=== PATIENT | male | born 1950 | race Caucasian/White ===

== ENCOUNTER 2020-12-24 11:41 | Inpatient (IN) | payer MEDICARE, OTHER ==
[~2020-12-24] VITALS: Ht 172.7 cm; Wt 59.2 kg
[2020-12-24 12:04] LABS: BASOPHILS % (AUTO) 0.2 % (0.0-5.0); EOSINOPHILS % (AUTO) 0.3 % (0.0-8.0); HEMATOCRIT 31.3 % (42-54); LYMPHOCYTES % (AUTO) 14.2 % (21.0-51.0); MEAN CORPUSCULAR HEMOGLOBIN 29.7 pg (27.0-33.0); MEAN CORPUSCULAR HGB CONC 34.2 g/dL (32.0-36.0); MEAN CORPUSCULAR VOLUME 86.9 fL (79-99); MONOCYTES % (AUTO) 8.5 % (3.0-13.0); NEUTROPHILS % (AUTO) 76.4 % (40.0-77.0); PLATELET COUNT (AUTO) 209 K/uL (130-400); RED CELL DISTRIBUTION WIDTH 13.1 % (11.0-15.5)
[2020-12-24] MEDS: PANTOPRAZOLE 40 MG/VIAL IVP SCH (12:13)
[2020-12-24 12:14] LABS: CREATININE 0.9 mg/dL (0.5-1.5); POTASSIUM 3.1 mmol/L (3.5-5.1)
[2020-12-24 12:15] LABS: INR 1.12 (0.85-1.15); PROTHROMBIN TIME 12.1 SEC (9.6-11.6)
[2020-12-24 12:16] LABS: PARTIAL THROMBOPLASTIN TIME 22.3 SEC (26.3-35.5)
[2020-12-24 12:19] LABS: ALBUMIN 3.2 g/dL (3.5-5.0); BILIRUBIN,TOTAL 0.9 mg/dL (0.2-1.0); TOTAL PROTEIN, SERUM 5.9 g/dL (6.0-8.3)
[2020-12-24] MEDS ORDERED: 0.9%NACL 1000ML 1,000 ML IV ONE (12:30)
[2020-12-24] MEDS ORDERED: IOHEXOL-350 75 ML VIAL IV ONE (13:41)
[2020-12-24 14:23] LABS: APPEARANCE,URINE Clear (CLEAR); BILIRUBIN,URINE Negative (NEGATIVE); COLOR,URINE Yellow (YELLOW); GLUCOSE, URINE (UA) Negative (NEGATIVE); KETONES,URINE >=160 mg/dL (NEGATIVE); LEUKOCYTE ESTERASE ,URINE Negative (NEGATIVE); NITRATE,URINE Negative (NEGATIVE); OCCULT BLOOD,URINE Negative (NEGATIVE); PH,URINE 5.5 (5.0-8.0); PROTEIN,URINE Trace mg/dL (NEGATIVE); UROBILINOGEN,URINE 0.2 mg/dL (0.2-1.0)
[2020-12-24 14:56] LABS: BACTERIA,URINE Rare /HPF (None Seen); MUCUS,URINE Few LPF (None Seen); RBC,URINE 0-1 /HPF (0-1); SQUAMOUS EPITHELIAL CELL,UR Few /HPF (0-2); WBC,URINE 0-1 /HPF (0-1)
[2020-12-24] MEDS ORDERED: DiphenhydrAMINE HCL 50 MG/ML VIAL IV PRN (15:00)
[2020-12-24] MEDS ORDERED: 0.9%NACL 1000ML 1,000 ML IV SCH (15:00)
[2020-12-24] MEDS ORDERED: ACETAMINOPHEN 325 MG TAB PO PRN ×2 (15:00)
[2020-12-24 15:52] LABS: AMPHET/METH SCREEN,URINE NEGATIVE (NEGATIVE); BARBITURATE SCREEN, URINE NEGATIVE (NEGATIVE); BENZODIAZEPINES SCREEN,URINE NEGATIVE (NEGATIVE); CANNABINOID SCREEN,URINE POSITIVE (NEGATIVE); COCAINE SCREEN,URINE NEGATIVE (NEGATIVE); OPIATE SCREEN,URINE NEGATIVE (NEGATIVE); PHENCYCLIDINE SCREEN,URINE NEGATIVE (NEGATIVE)
[2020-12-24] MEDS ORDERED: PEG 3350/NA SULF,BICARB,CL/KCL 4000 ML SOLN PO SCH (16:00)
[2020-12-24] MEDS ORDERED: POTASSIUM CHLORIDE 10MEQ/100ML 100 ML IV PRN (16:00)
[2020-12-24 16:37] LABS: % IRON SATURATION 26.2 % (30-44)
[2020-12-24] MEDS: LACTATED RINGERS 1000ML 1,000 ML IV SCH (16:38)
[2020-12-24 16:48] LABS: CRP QUANTITATIVE < 2.00 mg/L (0.00-9.0)
[2020-12-24 18:30] LABS: HEMATOCRIT 28.6 % (42-54)
[2020-12-24] MEDS: LIDOCAINE HCL-MPF 1% 2ML VIAL IV PRN ×2 (18:50→19:12)
[2020-12-24] MEDS: POTASSIUM CHLORIDE 20MEQ/100ML 100 ML IV PRN ×2 (18:50→19:12)
[2020-12-24] MEDS ORDERED: 0.9%NACL 50ML 50 ML IV ONE (21:26)
[2020-12-24] MEDS: ZOSYN 3.375GM+NS 50ML 50 ML IV SCH (21:30)
[2020-12-24] MEDS: PANTOPRAZOLE 40 MG/VIAL IV SCH (21:30)
[2020-12-24] MEDS: ONDANSETRON 4MG INJ IV PRN (22:37)
[2020-12-25] VITALS (7 sets, daily range): BP systolic 80–123; BP diastolic 50–82
[2020-12-25 00:53] LABS: HEMATOCRIT 24.1 % (42-54)
[2020-12-25] MEDS: LACTATED RINGERS 1000ML 1,000 ML IV SCH ×2 (04:50→12:08)
[2020-12-25] MEDS ORDERED: 0.9%NACL 50ML 50 ML IV ONE (06:13)
[2020-12-25] MEDS: ZOSYN 3.375GM+NS 50ML 50 ML IV SCH ×3 (06:14→20:40)
[2020-12-25 06:42] LABS: BASOPHILS % (AUTO) 0.2 % (0.0-5.0); EOSINOPHILS % (AUTO) 0.2 % (0.0-8.0); HEMATOCRIT 23.8 % (42-54); LYMPHOCYTES % (AUTO) 13.1 % (21.0-51.0); MEAN CORPUSCULAR HEMOGLOBIN 29.4 pg (27.0-33.0); MEAN CORPUSCULAR HGB CONC 33.6 g/dL (32.0-36.0); MEAN CORPUSCULAR VOLUME 87.5 fL (79-99); MONOCYTES % (AUTO) 7.8 % (3.0-13.0); NEUTROPHILS % (AUTO) 78.2 % (40.0-77.0); PLATELET COUNT (AUTO) 175 K/uL (130-400); RED BLOOD CELL COUNT(AUTO) 2.72 MIL/uL (4.50-6.20); RED CELL DISTRIBUTION WIDTH 13.4 % (11.0-15.5); WHITE BLOOD COUNT (AUTO) 12.4 K/uL (4.8-10.8)
[2020-12-25 06:49] LABS: CREATININE 0.7 mg/dL (0.5-1.5)
[2020-12-25] MEDS ORDERED: PROPOFOL 10 MG/ML 20ML VIAL IV ONE ×2 (07:23)
[2020-12-25] MEDS ORDERED: LIDOCAINE HCL 1% 20 ML VIAL ONE (07:24)
[2020-12-25] MEDS ORDERED: EPHEDRINE SULFATE 50 MG/ML AMPULE ONE (07:57)
[2020-12-25] MEDS ORDERED: PANTOPRAZOLE 40 MG/VIAL IVP SCH (09:00)
[2020-12-25] MEDS: PANTOPRAZOLE 40 MG/VIAL IV SCH ×2 (09:02→20:40)
[2020-12-25] MEDS: MAGNESIUM 2GM PREMIX 50ML 50 ML IV SCH (09:41)
[2020-12-25 11:17] LABS: HEMATOCRIT 22.9 % (42-54)
[2020-12-25] MEDS: PANTOPRAZOLE 40 MG/VIAL IVP SCH (12:08)
[2020-12-25] MEDS: LIDOCAINE HCL-MPF 1% 2ML VIAL IV PRN (12:09)
[2020-12-25] MEDS: POTASSIUM CHLORIDE 20MEQ/100ML 100 ML IV PRN ×2 (12:09→15:29)
[2020-12-25] MEDS: MORPHINE 2 MG SYG IV PRN ×2 (12:18→17:45)
[2020-12-25] MEDS: ONDANSETRON 4MG INJ IV PRN (12:18)
[2020-12-25] MEDS ORDERED: COMPOUND IV MISC 1 EACH IVSOLN MISC PRN (13:30)
[2020-12-25] MEDS: IRON SUCROSE COMPLEX 100 MG in 0.9%NACL 50ML 50 ML IV SCH (19:23)
[2020-12-25 23:27] LABS: HEMATOCRIT 20.7 % (42-54)
[2020-12-26] VITALS (7 sets, daily range): BP systolic 115–132; BP diastolic 63–72
[2020-12-26] MEDS: ZOSYN 3.375GM+NS 50ML 50 ML IV SCH ×3 (05:01→21:05)
[2020-12-26 07:09] LABS: BASOPHILS % (AUTO) 0.3 % (0.0-5.0); LYMPHOCYTES % (AUTO) 13.6 % (21.0-51.0); MEAN CORPUSCULAR HEMOGLOBIN 29.8 pg (27.0-33.0); MEAN CORPUSCULAR HGB CONC 33.8 g/dL (32.0-36.0); MEAN CORPUSCULAR VOLUME 88.1 fL (79-99); MONOCYTES % (AUTO) 9.5 % (3.0-13.0); NEUTROPHILS % (AUTO) 75.1 % (40.0-77.0); PLATELET COUNT (AUTO) 159 K/uL (130-400); RED BLOOD CELL COUNT(AUTO) 2.35 MIL/uL (4.50-6.20); RED CELL DISTRIBUTION WIDTH 13.4 % (11.0-15.5); WHITE BLOOD COUNT (AUTO) 11.1 K/uL (4.8-10.8)
[2020-12-26 07:22] LABS: HEMATOCRIT 20.7 % (42-54)
[2020-12-26 08:04] LABS: CREATININE 0.6 mg/dL (0.5-1.5)
[2020-12-26] MEDS: IRON SUCROSE COMPLEX 100 MG in 0.9%NACL 50ML 50 ML IV SCH (08:57)
[2020-12-26] MEDS: PANTOPRAZOLE 40 MG/VIAL IV SCH ×2 (08:57→21:05)
[2020-12-26] MEDS: PANTOPRAZOLE 40 MG/VIAL IVP SCH (10:12)
[2020-12-26] MEDS: POTASSIUM CHLORIDE 20MEQ/100ML 100 ML IV PRN ×2 (11:32→14:59)
[2020-12-26] MEDS: MORPHINE 2 MG SYG IV PRN ×2 (11:33→23:12)
[2020-12-26] MEDS: LACTATED RINGERS 1000ML 1,000 ML IV SCH (21:05)
[2020-12-26] MEDS: ONDANSETRON 4MG INJ IV PRN (23:12)
[2020-12-27] VITALS (7 sets, daily range): BP systolic 113–136; BP diastolic 65–76
[2020-12-27 04:09] LABS: HEPATITIS A ANTIBODY IGM Negative (Negative); HEPATITIS B CORE IGM Negative (Negative); HEPATITIS Bs ANTIGEN SCREEN P Negative (Negative)
[2020-12-27 04:49] LABS: BASOPHILS % (AUTO) 0.4 % (0.0-5.0); EOSINOPHILS % (AUTO) 2.8 % (0.0-8.0); HEMATOCRIT 22.2 % (42-54); LYMPHOCYTES % (AUTO) 20.2 % (21.0-51.0); MEAN CORPUSCULAR HEMOGLOBIN 30.7 pg (27.0-33.0); MEAN CORPUSCULAR HGB CONC 35.1 g/dL (32.0-36.0); MEAN CORPUSCULAR VOLUME 87.4 fL (79-99); MONOCYTES % (AUTO) 11.4 % (3.0-13.0); NEUTROPHILS % (AUTO) 64.9 % (40.0-77.0); PLATELET COUNT (AUTO) 175 K/uL (130-400); RED BLOOD CELL COUNT(AUTO) 2.54 MIL/uL (4.50-6.20); RED CELL DISTRIBUTION WIDTH 13.6 % (11.0-15.5); WHITE BLOOD COUNT (AUTO) 9.7 K/uL (4.8-10.8)
[2020-12-27 05:31] LABS: ALBUMIN 2.6 g/dL (3.5-5.0); BILIRUBIN,TOTAL 1.6 mg/dL (0.2-1.0); CREATININE 0.6 mg/dL (0.5-1.5); POTASSIUM 3.2 mmol/L (3.5-5.1); TOTAL PROTEIN, SERUM 4.9 g/dL (6.0-8.3)
[2020-12-27] MEDS: ZOSYN 3.375GM+NS 50ML 50 ML IV SCH ×3 (05:32→20:40)
[2020-12-27] MEDS: PANTOPRAZOLE 40 MG/VIAL IVP SCH (07:06)
[2020-12-27] MEDS: PANTOPRAZOLE 40 MG/VIAL IV SCH ×2 (08:59→20:39)
[2020-12-27] MEDS: IRON SUCROSE COMPLEX 100 MG in 0.9%NACL 50ML 50 ML IV SCH (08:59)
[2020-12-27] MEDS: LACTATED RINGERS 1000ML 1,000 ML IV SCH (10:23)
[2020-12-27] MEDS: POTASSIUM CHLORIDE 20MEQ/100ML 100 ML IV PRN ×2 (11:46→20:51)
[2020-12-27 16:07] LABS: CREATININE 0.5 mg/dL (0.5-1.5); POTASSIUM 3.2 mmol/L (3.5-5.1)
[2020-12-27] MEDS: ONDANSETRON 4MG INJ IV PRN (18:02)
[2020-12-27] MEDS: MORPHINE 2 MG SYG IV PRN (20:40)
[2020-12-28] VITALS (20 sets, daily range): BP systolic 102–164; BP diastolic 63–95
[2020-12-28] MEDS: ZOSYN 3.375GM+NS 50ML 50 ML IV SCH ×4 (06:13→21:42)
[2020-12-28 07:02] LABS: BASOPHILS % (AUTO) 0.3 % (0.0-5.0); EOSINOPHILS % (AUTO) 1.7 % (0.0-8.0); HEMATOCRIT 26.2 % (42-54); LYMPHOCYTES % (AUTO) 13.5 % (21.0-51.0); MEAN CORPUSCULAR VOLUME 85.3 fL (79-99); MONOCYTES % (AUTO) 9.4 % (3.0-13.0); NEUTROPHILS % (AUTO) 74.6 % (40.0-77.0); PLATELET COUNT (AUTO) 183 K/uL (130-400); RED BLOOD CELL COUNT(AUTO) 3.07 MIL/uL (4.50-6.20); RED CELL DISTRIBUTION WIDTH 15.7 % (11.0-15.5); WHITE BLOOD COUNT (AUTO) 11.1 K/uL (4.8-10.8)
[2020-12-28 07:14] LABS: ALBUMIN 2.5 g/dL (3.5-5.0); BILIRUBIN,TOTAL 1.6 mg/dL (0.2-1.0); CREATININE 0.7 mg/dL (0.5-1.5)
[2020-12-28] MEDS: POTASSIUM CHLORIDE 20MEQ/100ML 100 ML IV PRN ×2 (08:31→11:21)
[2020-12-28] MEDS: IRON SUCROSE COMPLEX 100 MG in 0.9%NACL 50ML 50 ML IV SCH (08:31)
[2020-12-28] MEDS: PANTOPRAZOLE 40 MG/VIAL IV SCH ×2 (08:31→21:42)
[2020-12-28] MEDS ORDERED: MAGNESIUM 2GM PREMIX 50ML 50 ML IV SCH (11:00)
[2020-12-28] MEDS: MAGNESIUM 2GM PREMIX 50ML 50 ML IV SCH (11:21)
[2020-12-28] MEDS ORDERED: LACTATED RINGERS 1000ML 1,000 ML IV ONE (12:24)
[2020-12-28] MEDS ORDERED: SUCCINYLCHOLINE CHLORIDE 20 MG/ML 10 ML VIAL ONE (12:40)
[2020-12-28] MEDS ORDERED: ROCURONIUM 10MG/1ML SYR 10 MG/ML ML ONE (12:40)
[2020-12-28] MEDS ORDERED: MIDAZOLAM HCL 1 MG/ML 2ML VIAL ONE (12:40)
[2020-12-28] MEDS ORDERED: LIDOCAINE PF 100MG/5ML (2%) SYRINGE 5ML ONE (12:40)
[2020-12-28] MEDS ORDERED: PROPOFOL 10 MG/ML 20ML VIAL IV ONE (12:40)
[2020-12-28] MEDS ORDERED: FENTANYL CITRATE PF 50 MCG/1 ML 2ML VIAL ONE (12:41)
[2020-12-28] MEDS ORDERED: EPHEDRINE SULFATE 50 MG/ML AMPULE ONE (13:14)
[2020-12-28] MEDS ORDERED: GLYCOPYRROLATE 1 MG/5 ML SYRINGE ONE (14:24)
[2020-12-28] MEDS ORDERED: NEOSTIGMINE 5MG/5ML SYR IV ONE (14:24)
[2020-12-28] MEDS ORDERED: ROPIVACAINE 0.5% 5MG/ML 30ML IJ ONE (14:30)
[2020-12-28] MEDS ORDERED: MEPERIDINE-PF 25 MG/ML SYG ONE ×2 (15:13→15:25)
[2020-12-28] MEDS ORDERED: MORPHINE PCA 50MG/50ML 50 ML IV PRN (16:30)
[2020-12-28] MEDS ORDERED: NALOXONE HCL 0.4 MG/1 ML ML IVP PRN (16:30)
[2020-12-28] MEDS ORDERED: PHARMACY COMMUNICATION MISC SCH (16:30)
[2020-12-29 03:13] VITALS: BP 108/70
[2020-12-29] MEDS: ZOSYN 3.375GM+NS 50ML 50 ML IV SCH ×3 (05:09→22:31)
[2020-12-29 05:23] LABS: BASOPHILS % (AUTO) 0.2 % (0.0-5.0); EOSINOPHILS % (AUTO) 0.6 % (0.0-8.0); HEMATOCRIT 29.5 % (42-54); MEAN CORPUSCULAR HEMOGLOBIN 29.1 pg (27.0-33.0); MEAN CORPUSCULAR HGB CONC 34.2 g/dL (32.0-36.0); MONOCYTES % (AUTO) 6.9 % (3.0-13.0); NEUTROPHILS % (AUTO) 84.7 % (40.0-77.0); PLATELET COUNT (AUTO) 266 K/uL (130-400); RED BLOOD CELL COUNT(AUTO) 3.47 MIL/uL (4.50-6.20); RED CELL DISTRIBUTION WIDTH 16.9 % (11.0-15.5); WHITE BLOOD COUNT (AUTO) 15.6 K/uL (4.8-10.8)
[2020-12-29 05:34] LABS: ALBUMIN 2.6 g/dL (3.5-5.0); BILIRUBIN,TOTAL 0.8 mg/dL (0.2-1.0); CREATININE 0.6 mg/dL (0.5-1.5); MAGNESIUM 1.8 mg/dL (1.80-2.40); POTASSIUM 3.9 mmol/L (3.5-5.1)
[2020-12-29 07:53] VITALS: BP 119/76
[2020-12-29] MEDS: IRON SUCROSE COMPLEX 100 MG in 0.9%NACL 50ML 50 ML IV SCH (08:24)
[2020-12-29] MEDS: PANTOPRAZOLE 40 MG/VIAL IV SCH ×2 (08:24→22:31)
[2020-12-29] MEDS: MAGNESIUM 2GM PREMIX 50ML 50 ML IV SCH (08:25)
[2020-12-29 11:18] VITALS: BP 138/76
[2020-12-29 16:03] VITALS: BP 107/71
[2020-12-29 20:00] VITALS: BP 132/59
[2020-12-30] VITALS: BP 112/68
[2020-12-30 04:00] VITALS: BP 123/63
[2020-12-30] MEDS: ZOSYN 3.375GM+NS 50ML 50 ML IV SCH ×3 (06:05→23:22)
[2020-12-30] MEDS ORDERED: ACET1TAB25 PO (06:35)
[2020-12-30 07:44] VITALS: BP 114/66
[2020-12-30] MEDS: PANTOPRAZOLE 40 MG/VIAL IV SCH ×2 (09:02→20:31)
[2020-12-30] MEDS: IRON SUCROSE COMPLEX 100 MG in 0.9%NACL 50ML 50 ML IV SCH (09:02)
[2020-12-30 11:44] VITALS: BP 93/65
[2020-12-30] MEDS ORDERED: HYDROCODONE/ACETAMINOPHEN 5/325 MG TAB PO PRN (14:30)
[2020-12-30 15:29] VITALS: BP 116/72
[2020-12-30 20:42] VITALS: BP 125/81
[2020-12-30] MEDS: ONDANSETRON 4MG INJ IV PRN (22:02)
[2020-12-31] VITALS (7 sets, daily range): BP systolic 107–143; BP diastolic 68–93
[2020-12-31] MEDS: METOCLOPRAMIDE 10 MG/2 ML VIAL IVP SCH ×3 (00:09→16:28)
[2020-12-31] MEDS: ZOSYN 3.375GM+NS 50ML 50 ML IV SCH ×3 (06:19→21:00)
[2020-12-31] MEDS: PANTOPRAZOLE 40 MG/VIAL IV SCH ×2 (08:17→21:00)
[2020-12-31 10:23] LABS: BASOPHILS % (AUTO) 0.2 % (0.0-5.0); EOSINOPHILS % (AUTO) 0.5 % (0.0-8.0); HEMATOCRIT 30.8 % (42-54); LYMPHOCYTES % (AUTO) 6.1 % (21.0-51.0); MEAN CORPUSCULAR HEMOGLOBIN 28.9 pg (27.0-33.0); MEAN CORPUSCULAR HGB CONC 33.4 g/dL (32.0-36.0); MEAN CORPUSCULAR VOLUME 86.3 fL (79-99); MONOCYTES % (AUTO) 7.2 % (3.0-13.0); NEUTROPHILS % (AUTO) 85.6 % (40.0-77.0); PLATELET COUNT (AUTO) 308 K/uL (130-400); RED BLOOD CELL COUNT(AUTO) 3.57 MIL/uL (4.50-6.20); RED CELL DISTRIBUTION WIDTH 17.3 % (11.0-15.5); WHITE BLOOD COUNT (AUTO) 13.2 K/uL (4.8-10.8)
[2020-12-31 10:35] LABS: CREATININE 0.6 mg/dL (0.5-1.5)
[2020-12-31 10:44] LABS: ALBUMIN 2.5 g/dL (3.5-5.0); BILIRUBIN,TOTAL 0.4 mg/dL (0.2-1.0); MAGNESIUM 1.8 mg/dL (1.80-2.40); PHOSPHORUS 4.3 mg/dL (2.5-4.9); TOTAL PROTEIN, SERUM 5.5 g/dL (6.0-8.3)
[2020-12-31] MEDS ORDERED: KETOROLAC 15MG/ML VIAL (15MG/ML) IV PRN (11:00)
[2020-12-31] MEDS: IRON SUCROSE COMPLEX 100 MG in 0.9%NACL 50ML 50 ML IV SCH (12:18)
[2021-01-01 03:51] VITALS: BP 123/73
[2021-01-01] MEDS: ZOSYN 3.375GM+NS 50ML 50 ML IV SCH ×3 (04:16→20:53)
[2021-01-01 04:45] LABS: BASOPHILS % (AUTO) 0.3 % (0.0-5.0); EOSINOPHILS % (AUTO) 2.4 % (0.0-8.0); HEMATOCRIT 24.8 % (42-54); LYMPHOCYTES % (AUTO) 9.2 % (21.0-51.0); MEAN CORPUSCULAR HEMOGLOBIN 29.8 pg (27.0-33.0); MEAN CORPUSCULAR HGB CONC 34.3 g/dL (32.0-36.0); MONOCYTES % (AUTO) 9.4 % (3.0-13.0); NEUTROPHILS % (AUTO) 78.3 % (40.0-77.0); PLATELET COUNT (AUTO) 301 K/uL (130-400); RED BLOOD CELL COUNT(AUTO) 2.85 MIL/uL (4.50-6.20); RED CELL DISTRIBUTION WIDTH 17.3 % (11.0-15.5); WHITE BLOOD COUNT (AUTO) 11.5 K/uL (4.8-10.8)
[2021-01-01 05:01] LABS: ALBUMIN 2.3 g/dL (3.5-5.0); BILIRUBIN,TOTAL 0.4 mg/dL (0.2-1.0); CREATININE 0.6 mg/dL (0.5-1.5); POTASSIUM 3.2 mmol/L (3.5-5.1); TOTAL PROTEIN, SERUM 4.9 g/dL (6.0-8.3)
[2021-01-01] MEDS ORDERED: POTASSIUM CHLORIDE 20MEQ/100ML 100 ML IV PRN (06:00)
[2021-01-01] MEDS ORDERED: LIDOCAINE HCL-MPF 1% 2ML VIAL IV PRN (06:00)
[2021-01-01] MEDS ORDERED: POTASSIUM CHLORIDE 10% ELIXIR 20 MEQ/15 ML UDCUP PO PRN (06:00)
[2021-01-01] MEDS: KCL 20 MEQ ERTAB PO PRN ×2 (06:04→14:38)
[2021-01-01 08:00] VITALS: BP 122/72
[2021-01-01] MEDS: IRON SUCROSE COMPLEX 100 MG in 0.9%NACL 50ML 50 ML IV SCH (09:00)
[2021-01-01] MEDS: PANTOPRAZOLE 40 MG/VIAL IV SCH ×2 (09:00→20:53)
[2021-01-01 12:00] VITALS: BP 117/76
[2021-01-01 16:00] VITALS: BP 109/64
[2021-01-01 19:00] VITALS: BP 116/68
[2021-01-02] VITALS: BP 108/61
[2021-01-02 03:50] VITALS: BP 121/68
[2021-01-02] MEDS: ZOSYN 3.375GM+NS 50ML 50 ML IV SCH (04:12)
[2021-01-02 04:53] LABS: BASOPHILS % (AUTO) 0.6 % (0.0-5.0); EOSINOPHILS % (AUTO) 4.2 % (0.0-8.0); HEMATOCRIT 26.8 % (42-54); LYMPHOCYTES % (AUTO) 10.2 % (21.0-51.0); MEAN CORPUSCULAR HEMOGLOBIN 29.2 pg (27.0-33.0); MEAN CORPUSCULAR HGB CONC 32.5 g/dL (32.0-36.0); MEAN CORPUSCULAR VOLUME 89.9 fL (79-99); MONOCYTES % (AUTO) 12.1 % (3.0-13.0); NEUTROPHILS % (AUTO) 72.5 % (40.0-77.0); PLATELET COUNT (AUTO) 330 K/uL (130-400); RED BLOOD CELL COUNT(AUTO) 2.98 MIL/uL (4.50-6.20); RED CELL DISTRIBUTION WIDTH 17.3 % (11.0-15.5); WHITE BLOOD COUNT (AUTO) 8.2 K/uL (4.8-10.8)
[2021-01-02 05:10] LABS: ALBUMIN 2.4 g/dL (3.5-5.0); BILIRUBIN,TOTAL 0.4 mg/dL (0.2-1.0); CREATININE 0.7 mg/dL (0.5-1.5); POTASSIUM 3.8 mmol/L (3.5-5.1); TOTAL PROTEIN, SERUM 5.2 g/dL (6.0-8.3)
[2021-01-02 07:34] VITALS: BP 111/67
[2021-01-02] MEDS: IRON SUCROSE COMPLEX 100 MG in 0.9%NACL 50ML 50 ML IV SCH (08:40)
[2021-01-02] MEDS: PANTOPRAZOLE 40 MG/VIAL IV SCH (08:42)
[2021-01-02] MEDS ORDERED: METR-172 PO (10:38)
[2021-01-02] MEDS ORDERED: LEVO750T46 PO (10:38)
[2021-01-02 11:07] VITALS: BP 114/68
== END 2021-01-02 12:00 | disposition home or self-care (01) | DRG 329 ==
LOC: EDH 11:41 → EDHIP 11:42 → 4CH 12-26 13:28 → 4BH 12-30 18:56
PROVIDERS: ADMIT Internal Medicine; ATTEND Internal Medicine
PROC: 0DBL8ZX Excision of Transverse Colon, Via Natural or Artificial Opening Endoscopic, Diagnostic (ICD-10-PCS; 2020-12-25)
PROC: 30233N1 Transfusion of Nonautologous Red Blood Cells into Peripheral Vein, Percutaneous Approach (ICD-10-PCS; 2020-12-26)
PROC: 0DTF0ZZ Resection of Right Large Intestine, Open Approach (ICD-10-PCS; principal; 2020-12-28 13:00)
DX: C18.3 Malignant neoplasm of hepatic flexure (principal); E43 Unspecified severe protein-calorie malnutrition; D62 Acute posthemorrhagic anemia; E87.1 Hypo-osmolality and hyponatremia; E44.0 Moderate protein-calorie malnutrition; Z68.1 Body mass index [BMI] 19.9 or less, adult; K57.20 Diverticulitis of large intestine with perforation and abscess without bleeding; C18.9 Malignant neoplasm of colon, unspecified; C18.2 Malignant neoplasm of ascending colon; K52.9 Noninfective gastroenteritis and colitis, unspecified; S00.81XA Abrasion of other part of head, initial encounter; E87.6 Hypokalemia; Z20.822 Contact with and (suspected) exposure to COVID-19; F12.10 Cannabis abuse, uncomplicated; R93.3 Abnormal findings on diagnostic imaging of other parts of digestive tract; W19.XXXA Unspecified fall, initial encounter; Y93.89 Activity, other specified; Y92.89 Other specified places as the place of occurrence of the external cause; Y99.8 Other external cause status
CPT/HCPCS: 36415; 45380; 45381; 70450; 74018; 74177; 80048; 80053; 80074; 80305; 81001; 82105; 82270; 82378; 82728; 83540; 83550; 83605; 83735; 84100; 84132; 84145; 84484; 85014; 85018; 85025; 85610; 85651; 85730; 86140; 86316; 86701; 86850; 86900; 86901; 86923; 87390; 87635; 88309; 93005; 97039; C9113; G0378; J0330; J1200; J1756; J1885; J2001; J2175; J2250; J2270; J2405; J2543; J2704; J2710; J2765; J2795; J3010; J3475; J3480; J3490; J7120; P9016; Q9967

== ENCOUNTER 2021-05-23 08:28 | Emergency (ER) | payer MEDICARE, OTHER ==
[~2021-05-23] VITALS: Ht 172.7 cm; Wt 68.0 kg
[~2021-05-23 08:28] MED LIST: ACET-2079 PO; LEVO750T46 PO; METR-172 PO
[2021-05-23] MEDS ORDERED: CEPHALEXIN 500 MG CAPSULE PO ONE (10:00)
[2021-05-23] MEDS ORDERED: CEPHALEXIN 500 MG CAPSULE ONE (10:18)
[2021-05-23] MEDS ORDERED: ACET-2079 PO (10:25)
[2021-05-23] MEDS ORDERED: CEPH500B PO (10:25)
[2021-05-23 10:28] VITALS: BP 124/76
== END 2021-05-23 10:36 | disposition home or self-care (01) ==
LOC: EDH 08:28
DX: S62.633A Displaced fracture of distal phalanx of left middle finger, initial encounter for closed fracture (principal); S61.213A Laceration without foreign body of left middle finger without damage to nail, initial encounter; M79.675 Pain in left toe(s); W23.0XXA Caught, crushed, jammed, or pinched between moving objects, initial encounter; Y93.89 Activity, other specified; Y92.89 Other specified places as the place of occurrence of the external cause; Y99.8 Other external cause status
CPT/HCPCS: 12001; 29130; 73140; 73630

== ENCOUNTER 2023-09-03 12:00 | Emergency (ER) | payer OTHER, MEDICARE ==
[~2023-09-03] VITALS: Ht 172.7 cm; Wt 68.0 kg
[~2023-09-03 12:00] MED LIST changes: +CEPH500B PO; -LEVO750T46 PO; +LEVO750T68 PO
[2023-09-03 15:35] VITALS: BP 130/61; PULSE 60; RESP 20; O2SAT 99
== END 2023-09-03 15:46 | disposition home or self-care (01) ==
LOC: EDH 12:00
DX: S09.8XXA Other specified injuries of head, initial encounter (principal); R53.1 Weakness; Z79.899 Other long term (current) drug therapy; Z98.890 Other specified postprocedural states; V89.2XXA Person injured in unspecified motor-vehicle accident, traffic, initial encounter; Y93.I9 Activity, other involving external motion; Y92.488 Other paved roadways as the place of occurrence of the external cause; Y99.8 Other external cause status
CPT/HCPCS: 70450